=== PATIENT | male | born 1990 | race Caucasian/White ===

== ENCOUNTER 2022-11-21 13:52 | Outpatient (CLI) | payer BC, SELFPAY ==
--- NOTE | ~2022-11-21 | MR_ITS ---
EXAMINATION: MR brain/brain stem wo con DATE: 11/21/2022 14:41 INDICATION: SEIZURE, NONTRAUMATIC TECHNIQUE: Magnetic resonance imaging (MRI) of the brain and brainstem was performed without intraven ous contrast. Sequences included sagittal and axial T1-weighted SE, axial diffusion-weighted FS EPI A SSET, axial T2*-weighted GRE, axial T2-weighted FLAIR Propeller, and axial T2-weighted Propeller. Pos tcontrast axial and coronal T1-weighted SE was obtained. Apparent diffusion coefficient (ADC) maps we re created. COMPARISON: None. FINDINGS: No abnormal restricted diffusion to suggest acute ischemic infarct. No MRI evidence of hemorrhage or extra-axial collection. No suspicious foci of susceptibility to suggest prior intraparenchymal hemorr zahra. Normal white matter signal. No evidence of advanced or lobar predominant parenchymal volume los s. The basilar cisterns are patent. Flow voids are preserved. Paranasal sinuses are within normal menard its. Globes and orbital contents are within normal limits. IMPRESSION: Normal MR brain findings. Reviewed, dictated and finalized at location K. IMPRESSION: Normal MR brain findings.
== END 2022-11-21 13:53 | disposition home or self-care (01) ==
PROVIDERS: PCP Internal Medicine
DX: R56.9 Unspecified convulsions (principal)
CPT/HCPCS: 70551

== ENCOUNTER 2023-06-18 08:16 | Emergency (ER) | payer BC, OTHER, SELFPAY ==
[2023-06-18] VITALS (13 sets, daily range): BP systolic 108–127; BP diastolic 67–86; PULSE 68–92; RESP 14–16; TEMP 36.8; O2SAT 92–100
--- NOTE | ~2023-06-18 | XR_ITS ---
EXAMINATION: XR chest 1V portable DATE: 06/18/2023 10:22 INDICATION: Joint pain. TECHNIQUE: A single frontal view of the chest was obtained. COMPARISON: None. FINDINGS: There is no pneumonia, pleural effusion, or pneumothorax. The heart size is normal. IMPRESSION: 1. No acute cardiopulmonary disease. Reviewed, dictated and finalized at location A.
[2023-06-18 09:13] LABS: Influenza A QL RT-PCR Negative (Negative); Influenza B QL RT-PCR Negative (Negative); RSV RNA, RT-PCR Negative (Negative); SARS-CoV-2 RNA PCR Negative (Negative)
[2023-06-18] MEDS: SODIUM CHLORIDE 0.9% IV 1,000 ML 999 ML IV CONT (10:10)
[2023-06-18 10:17] LABS: Basophils Percent Auto 0.5 % (0.2-1.2); Eosinophils Absolute Auto 0.3 K/mm3 (0-0.3); Eosinophils Percent Auto 3.6 % (0-4.4); Hematocrit 38.7 % (42.0-52.0); Hemoglobin 13.8 g/dL (14.0-18.0); Immature Granulocyte Absolute 0.04 K/mm3 (0.00-0.031); Immature Granulocyte Percent A 0.5 % (0-0.5); Lymphocytes Absolute Auto 1.74 K/mm3 (0.9-3.2); Lymphocytes Percent Auto 23.3 % (18.3-44.2); Mean Corpuscular HGB Conc 35.7 g/dl (32-36); Mean Corpuscular Hemoglobin 30.3 pg (26-34); Mean Corpuscular Volume 85.1 fl (80-100); Mean Platelet Volume 8.9 fl (7.4-10.4); Monocytes Absolute Auto 0.6 K/mm3 (0.1-0.6); Monocytes Percent Auto 8.4 % (2.6-8.5); Neutrophils Absolute Auto 4.8 K/mm3 (1.3-6.7); Neutrophils Percent Auto 63.7 % (45.5-73.1); Platelet Count Result 214 k/mm3 (150-375); Red Blood Count 4.55 M/mm3 (4.6-6.20); Red Cell Distribution Width 11.9 % (11.5-14.5); White Blood Count 7.5 K/mm3 (4.5-10.0)
[2023-06-18 10:28] LABS: Uric Acid 4.7 mg/dL (3.5-8.5)
[2023-06-18 10:29] LABS: Rheumatoid Factor < 12.0 IU/ML (<12)
[2023-06-18 10:32] LABS: Alanine Aminotransferase 33 U/L (6-50); Albumin Level 4.3 g/dL (3.5-5.1); Alkaline Phosphatase 56 U/L (38-126); Anion Gap 5 mmol/L (8-16); Aspartate Amino Transferase 25 U/L (17-59); Bilirubin,Total 0.7 mg/dL (0.2-1.3); Blood Urea Nitrogen 14 mg/dL (9-20); CRP 0.8 mg/dL (<1.0); Calcium 9.2 mg/dL (8.4-10.2); Carbon Dioxide 31 mmol/L (22-30); Chloride 103 mmol/L (98-107); Creatine Kinase 71 U/L (55-170); Estimated CRCL calculation 124 ml/min; Estimated Glomerular Filt Rate > 60; Glucose 108 mg/dL (65-110); Sodium 139 mmol/L (137-145)
--- NOTE | 2023-06-18 10:53 | ED.GENADULT ---
HPI - General Adult General Chief complaint: Unspecified Stated complaint: stiffness to all joints, 4-5 days Time Seen by Provider: 06/18/23 08:26 History of Present Illness HPI narrative: 32-year-old male presented the emergency department for evaluation of multiple days of diffuse joint pain. Patient states it started on his right arm and has progressed to almost all his joints. Patient denies any associated fevers. Patient denies any change in medications. Patient denies any recent immunizations. Patient denies any coughs colds or fevers Related Data Allergies Allergy/AdvReac Type Severity Reaction Status Date / Time No Known Allergies Allergy Verified 06/18/23 09:00 Review of Systems Review of Systems: All systems reviewed & are unremarkable except as noted in HPI and below Exam Narrative: APPEARANCE: Well appearing, no pain, no distress, well-nourished. HEAD: normocephalic, atraumatic. EYES: PERRLA/EOMI, conjunctivae clear. NOSE: Normal no drainage EARS:TMS clear with good light reflex. THROAT: Pharynx clear, no exudate. NECK: Supple. No adenopathy, no masses. RESPIRATORY: Airway patent, respirations nonlabored. Clear to auscultation bilaterally, no rales, rhonchi, wheezing. CARDIOVASCULAR: Regular rate and rhythm without murmurs rubs or gallops. ABDOMINAL: Soft, nontender, nondistended, normal bowel sounds MUSCULOSKELETAL: Moves all extremities. Strength/ROM intact, No edema, No calf tenderness. NEURO: Alert. Cranial nerves II through XII intact. Grossly intact SKIN: Warm, dry. Normal Color Course Course Emergency Course: 32-year-old male present emergency department for evaluation of joint pain that started in his right hip and his right elbow and then spread to all other joints. Patient states he does take ibuprofen in the morning and the pain improves throughout the day but then returns in the morning. Patient was afebrile with no leukocytosis and a stable hemoglobin. Patient had no significant abnormalities on his CMP. Patient did have an elevated ESR at 151 patient's uric acid was not elevated patient's CRP was not elevated. Patient's ADRIANNA and Lyme disease are pending. Patient's rheumatoid factor was negative. Patient and family were updated on the results of the work-up and patient was encouraged of close follow-up with his primary care physician. Patient was educated on reasons to return to the emergency department. All other concerns were addressed Vital Signs Vital signs: Vital Signs Temperature 98.3 F 06/18/23 08:19 Pulse Rate 80 06/18/23 08:19 Respiratory Rate 16 06/18/23 08:19 Blood Pressure 127/77 06/18/23 08:19 Pulse Oximetry 99 06/18/23 08:19 Oxygen Delivery Room Air 06/18/23 08:19 Temperature 98.3 F 06/18/23 08:19 Pulse Rate 68 06/18/23 13:23 Respiratory Rate 15 06/18/23 13:23 Blood Pressure 109/70 06/18/23 13:23 Pulse Oximetry 100 06/18/23 13:23 Oxygen Delivery Room Air 06/18/23 08:19 Medical Decision Making Differential Diagnosis Differential Diagnosis: Lyme disease, COVID, rheumatoid arthritis, lupus, viral syndrome Vital Signs Vital Signs: Vital Signs Temperature 98.3 F 06/18/23 08:19 Pulse Rate 80 06/18/23 08:19 Respiratory Rate 16 06/18/23 08:19 Blood Pressure 127/77 06/18/23 08:19 Pulse Oximetry 99 06/18/23 08:19 Oxygen Delivery Room Air 06/18/23 08:19 Temperature 98.3 F 06/18/23 08:19 Pulse Rate 68 06/18/23 13:23 Respiratory Rate 15 06/18/23 13:23 Blood Pressure 109/70 06/18/23 13:23 Pulse Oximetry 100 06/18/23 13:23 Oxygen Delivery Room Air 06/18/23 08:19 Lab Data Lab results reviewed: Yes I reviewed the patient's lab results. 06/18/23 10:10 06/18/23 10:10 Labs: Lab Results 06/18/23 06/18/23 06/18/23 Range/Units 08:33 10:10 11:36 WBC 7.5 (4.5-10.0) K/mm3 RBC 4.55 L (4.6-6.20) M/mm3 Hgb 13.8 L (14.0-18.0) g/dL Hct
--- NOTE | 2023-06-18 10:59 | PC.NURSE ---
Patient report given to KAYKAY Mccullough. All questions answered and care of patient transferred.
[2023-06-18 11:02] LABS: Erythrocyte Sedimentation Rate 151 mm/hr (0-20)
[2023-06-18 12:06] LABS: Appearance Urine Clear (Clear); Bilirubin Urine Negative (Negative); Blood Urine Negative (Negative); Color Urine Yellow (Yellow); Glucose Urine UA Negative (Negative); Ketones Urine Negative (Negative); Leukocyte Esterase Ur Negative LEU/UL (Negative); Nitrate Urine Negative (Negative); Protein Urine Negative (Negative); Specific Grav Ur 1.032 (1.001-1.035); pH Urine 5.5 (5.0-9.0)
[2023-06-18 12:28] LABS: Add Urine Microscopic? NO
[2023-06-18] MEDS: KETOROLAC 15 MG/ML VIAL (*BKC) IV PUSH (12:58)
[2023-06-23 07:55] LABS: Lyme Disease Ab (IgM), Blot Negative (Negative); Lyme Disease Ab(IgG), Blot Negative (Negative)
== END 2023-06-18 13:24 | disposition home or self-care (01) ==
PROVIDERS: Emergency Provider Emergency Medicine; PCP Internal Medicine
DX: M25.521 Pain in right elbow (principal); M25.551 Pain in right hip; M25.59 Pain in other specified joint; Z20.822 Contact with and (suspected) exposure to COVID-19
CPT/HCPCS: 36415; 71045; 80053; 81003; 82550; 84550; 85025; 85652; 86140; 86430; 86617; 87637; 96361; 96374; 99284; J1885; J7030

== ENCOUNTER 2025-01-15 08:22 | Outpatient (CLI) | payer BC, SELFPAY ==
--- OUTSIDE RECORDS SUMMARY | 2025-01-15 08:29 | XMS_ITS | Referral Summary ---
Author Organization [id number] Address [address] [place] [id number] Care Team Providers Care Work Over Rig Operator Name Role Phone Shazia Mead NP Primary Care Provider [phone] Allergies Active Allergy Reactions Criticality Noted Date Comments Atomoxetine Vomiting Low 10/12/2019 vomiting Methylphenidate Mental status changes Low 0 worsening sx of depression Medications hydrOXYzine (ATARAX) 50 mg tabletIndications: anxiety Take 1 tablet (50 mg total) by mouth every 8 (eight) hours as needed for anxiety 90 tablet 1 10/19/19 20 Active escitalopram (LEXAPRO) 20 mg tabletIndications: Severe anxiety Take 1 tablet by mouth once daily 30 tablet 1 07/09/20 21 Active ondansetron ODT (ZOFRAN-ODT) 4 mg disintegrating tablet Take 1 tablet (4 mg total) by mouth every 8 (eight) hours as needed for nausea or vomiting 20 tablet 04/21/20 22 Active Additional Information Patient not taking.Reported on 12/07/2022 levETIRAcetam (KEPPRA) 500 mg tablet Take 1 tablet (500 mg total) by mouth 2 (two) times a day 180 tablet 3 03/22/20 24 025 Active Active Problems Problem Noted Date Diagnosed Date Altered mental status 02/29/2024 H/O convulsions 04/30/2022 Overview (11/03/2022): 04/30/2022 - EEG evident of some sz like activity, keppra therapy Dr Schroeder neuro is managing Assessment & Plan (11/03/2022 12:05 PM ASBESTOS PIPE SUPERVISOR): Cont under Dr Schroeder neurologist Remain sober off etoh Has a repeat eeg coming up No convulsions in over 6 months 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 Assessment & Plan (04/30/2022 5:52 PM CDT): Likely from dehydration and aggravated by etoh and vomiting eeg recommended to rule out seizure disorder. Explained to the patient that sometimes alcohol intake can do so the seizure threshold tendency. An EEG should be useful information. Healthy lifestyle Good hydration Patient discouraged from drinking alcohol. Offered the patient AA declines at this time feels he does not have a drinking problem. He knows that he cannot drink a responsibly and patient discouraged from drinking from here on. Letter for work stating that he is cleared to return to full duty functions without any restrictions effective immediately. Annual physical exam 09/09/2020 Assessment & Plan (09/10/2020 3:48 PM ASBESTOS PIPE SUPERVISOR): Wear sunscreen with SPF over 50 while outdoors. Wear sun protective head wear and clothing if planning to stay outdoors exposed to the direct sunlight for extended hours. Wear seatbelts while in a vehicle. Do not TEXT and DRIVE Do not DRINK and DRIVE. Drink responsibly Follow a heart healthy diet and lifestyle. Consume 5-7 servings of fruits and vegetables a day.. Such as the Mediterranean Diet. Maintain/attain normal body weight. Exercise regularly, minimum 20 mins 3 days a week to reduce cardiovascular healthy. Maintain good sleep schedule and sleep habits I recommend that all patients follow a diet that is high in fruits and vegetables and low in processed foods such as sugar and foods that are made with white flour. I recommend using beneficial fats such as olive oil, nuts, seeds and berries and avoiding saturated animal fats. Please stay physically active to the extent that you are physically able to. Test results: if you have not received communication about test results within 7 days of the test being performed, please contact the office. I strongly encourage myChart sign ups. It can facilitate communication flow. Please contact the office for instructions on signing up. BMI 27.0-27.9,adult 10/19/2019 Assessment & Plan (09/10/2020 3:49 PM ASBESTOS PIPE SUPERVISOR): Work on wt loss Exercise regularly add cardio to work out Cont to weight lift 5 d a week Assessment & Plan (11/14/2019 11:59 AM CDT): BMI Follow-up includes: nutrition counseling. ADHD (attention deficit hyperactivity disorder) 07/14/2016 Overview (11/03/2022): Has tried in the past, concerta (took for longestFlattened his emotions), strattera (heart palpitations, nausea), ritalin patch (rash from patch), adderal (gi sick) Assessment & Plan (11/03/2022 11:59 AM ASBESTOS PIPE SUPERVISOR): Managing well las an adult Use coping mechanisms Learning to deal with ADD Has tried in the past, concerta (took for longest. Flattened his emotions), strattera (heart palpitations, nausea), ritalin patch (rash from patch), adderal (gi sick) Still taking classes at work LUIS (generalized anxiety disorder) 07/14/2016 Overview (11/14/2019): Lexapro and prn atarax Assessment & Plan (11/03/2022 11:49 AM ASBESTOS PIPE SUPERVISOR): Cont on lexapro, takes it for a couple of months at a time Does not like the side effects Patient is able to identify when to restart lexapro Has not needed atarax for about 2 yrs Keep on board and use prn only Assessment & Plan (09/10/2020 3:48 PM ASBESTOS PIPE SUPERVISOR): Stable on lexapro therapy Episode of recurrent major depressive disorder 1 09/13/2015 Assessment & Plan (11/03/2022 11:51 AM ASBESTOS PIPE SUPERVISOR): lexapro cont prn but when take it make sure at least for 2-3 mos at a time Exercise for mental stability Walk regularlly or exercise regularly if able to Assessment & Plan (04/30/2022 5:50 PM CDT): Okay to continue Lexapro. Does not reduce seizure threshold. Assessment & Plan (09/10/2020 3:48 PM ASBESTOS PIPE SUPERVISOR): Stable on lexapro therapy daily Doing well Agrees to continue taking Ok to decrease dose to 10mg in the summer more active mos, increase to 20mg in the winter Assessment & Plan (11/14/2019 11:59 AM CDT): Continue lexapro as above Resolved Problems Problem Noted Date Diagnosed Date Resolved Date Severe anxiety 10/19/2019 11/14/2019 Assessment & Plan (11/14/2019 11:58 AM CDT): Significantly improved now on Lexapro 20 mg and Atarax as needed. Has only had takes Atarax 4-5 times in the last month. States he is having minimal side effects to the Lexapro. At the start he had some decreased libido but he feels this is returning. Notify office if libido becomes a problem and we can try Wellbutrin, however this does not work as well for anxiety. Otherwise continue current plan of care. Assessment & Plan (10/19/2019 2:47 PM ASBESTOS PIPE SUPERVISOR): Counseled patient about the dangers of taking high-dose SSRI without titrating it, he stated understanding. As he has been on 10-20 mg of Lexapro for over week, will send new prescription for 20 mg of Lexapro. I also educated patient on how Lexapro can take 4-6 weeks to help reduce anxiety. Due to this and his extreme anxiety, we'll start him on hydroxyzine 50 mg p.o. 3 times daily as needed. Medication causes to was fatigued then reduce to [address] until you know how medication affects you. Ff up in 4 weeks for next visit and anxiety check Immunizations Immunization Administration Dates Next Due Flucelvax Influenza Quad 07/05/2017 Influenza, Quadrivalent, Spl it, Preservative Free, Intramuscular 09/16/2017 PPD TEST 04/06/2017 Pfizer SARS-CoV-2 Monovalent Vaccination (12+ Yrs) PURPLE 08/23/2020 Tdap 10/17/2017 Varicella 10/17/2017,10/17/2017 Social History Tobacco Use Types Packs/Day Years Used Date Smoking Tobacco: Former Smokeless Tobacco: Never Tobacco Cessation:Counseling Given: No Alcohol Use Standard Drinks/Week Comments Yes 0 (1 standard drink = 0.6 oz pur e alcohol) AUDIT-C Answer Date Recorded Frequency of Alcohol Consumption 2-4 times a wed10/19/2019 Average Number of Drinks Not on file 020 Frequency of Binge Drinking Not on file 10/07 PHQ-2 Answer Date Recorded PHQ-2 Total Score (If total score is 3 or more points, staff should administer the PHQ-9) 0 11/03/2022 Personal Safety Answer Date Recorded Getting School Help Needed Not on file 10/10 Sex and Gender Information Value Date Recorded Sex Assigned at Not on file Legal Sex Male 5:58 PM ASBESTOS PIPE SUPERVISOR Gender Identity Not on file Sexual Orientation Not on file Occupation Industry Job Start Date Job End Date [employer] Not on file Not on file Not on file Last Filed Vital Signs Vital Sign Reading Time Taken Comments Blood Pressure 119/78 02/16/2024 11:33 AM CDT Pulse 81 12/07/2022 3:21 PM CDT Temperature 36.5 C (97.7 F) 12/07/2022 3:21 PM CDT Respiratory Rate 18 12/07/2022 3:21 PM CDT Oxygen Saturation 98% 12/07/2022 3:21 PM CDT Inhaled Oxygen Concentration - - Weight 86.2 kg (190 lb) 02/16/2024 11:33 AM CDT Height 180.3 cm (5' 11 ) 02/16/2024 11:33 AM CDT Body Mass Index 26.5 02/16/2024 11:33 AM CDT Plan of Treatment Not on file Insurance [facility] BLUE ACCESS ME BLUE ACCESS ME Care Teams Work Over Rig Operator Relationship Specialty Start Date End Date Shazia Mead NP [address] [place], [place] [id number] PCP - General Family Medicine 02/17/24
--- OUTSIDE RECORDS SUMMARY | 2025-01-15 08:30 | XMS_ITS | Clinical Summary ---
Author Organization [id number] Address [address] [place] [id number] Care Team Providers Care Format Proofreader Name Role Phone Shazia Mead NP Primary Care Provider [phone] Allergies Active Allergy Reactions Criticality Noted Date [...] managing Assessment & Plan (11/03/2022 12:05 PM VETERINARY INSPECTOR): Cont under Dr Schroeder neurologist Remain sober [...] 09/09/2020 Assessment & Plan (09/10/2020 3:48 PM VETERINARY INSPECTOR): Wear sunscreen with SPF over 50 while [...] 10/19/2019 Assessment & Plan (09/10/2020 3:49 PM VETERINARY INSPECTOR): Work on wt loss Exercise regularly add [...] sick) Assessment & Plan (11/03/2022 11:59 AM VETERINARY INSPECTOR): Managing well las an adult Use coping mechanisms Learning to deal with ADD Has tried in the past, concerta (took for longest. Flattened his emotions), strattera (heart palpitations, nausea), ritalin patch (rash from patch), adderal (gi sick) Still taking classes at work LUIS (generalized anxiety disorder) 07/14/2016 Overview (11/14/2019): Lexapro and prn atarax Assessment & Plan (11/03/2022 11:49 AM VETERINARY INSPECTOR): Cont on lexapro, takes it for a couple of months at a time Does not like the side effects Patient is able to identify when to restart lexapro Has not needed atarax for about 2 yrs Keep on board and use prn only Assessment & Plan (09/10/2020 3:48 PM VETERINARY INSPECTOR): Stable on lexapro therapy Episode of recurrent major depressive disorder 1 09/13/2015 Assessment & Plan (11/03/2022 11:51 AM VETERINARY INSPECTOR): lexapro cont prn but when take it make sure at least for 2-3 mos at a time Exercise for mental stability Walk regularlly or exercise regularly if able to Assessment & Plan (04/30/2022 5:50 PM CDT): Okay to continue Lexapro. Does not reduce seizure threshold. Assessment & Plan (09/10/2020 3:48 PM VETERINARY INSPECTOR): Stable on lexapro therapy daily Doing well [...] care. Assessment & Plan (10/19/2019 2:47 PM VETERINARY INSPECTOR): Counseled patient about the dangers of taking [...] Yrs) PURPLE 08/23/2020 Tdap 10/17/2017 Varicella 10/17/2017,10/17/2017 Surgical History Surgery Date Site/Laterality Comments LEG SURGERY Medical History Medical History Date Comments Anxiety Family History Medical History Relation Name Comments Hyperlipidemia Father Skin cancer Father Skin cancer Mother Relation Name Status Comments Father Alive Mother Alive Social History Tobacco Use Types Packs/Day Years [...] on file Legal Sex Male 5:58 PM VETERINARY INSPECTOR Gender Identity Not on file Sexual Orientation Not on file 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 file Not on file Not on file Obstetrics History Last Filed Vital Signs Vital Sign Reading [...] 02/16/2024 11:33 AM CDT Plan of Treatment Health Maintenance Due Date Last Done Comments Hepatitis C Screening 1991 Hepatitis B Screening 2009 Regular Well Visit/Exam 18-64 09/10/2021 09/10/2020 Depression Screening 11/03/2023 11/03/2022, 04/30/2022, 09/10/2020, Additional history exists Covid-19 Vaccine ( season) 2024 09/13/2020, 08/23/2020 Influenza Vaccine (Season Ended) 2025 09/16/2017, 07/05/2017 DTaP/Tdap/Td Vaccine (2 - Td or Tdap) 10/17/2027 10/17/2017 Varicella Vaccines Discontinued 10/17/2017, 10/17/2017 HPV Vaccines Aged Out No longer eligi ble based on patient's age to complete this topic Pneumococcal vaccine <65 Aged Out No longer eligible based on patient's age to complete this topic [place] [facility] Care Teams Format Proofreader Relationship Specialty Start Date End Date Shazia Mead NP [address] [place], [place] [id number] PCP - General Family Medicine 02/17/24
[2025-01-15 08:54] LABS: Hemoglobin 14.7 g/dL (14.0-18.0); Mean Corpuscular HGB Conc 34.2 g/dl (32-36); Mean Corpuscular Hemoglobin 29.5 pg (26-34); Mean Corpuscular Volume 86.3 fl (80-100); Platelet Count Result 247 k/mm3 (150-375); Red Blood Count 4.98 M/mm3 (4.6-6.20); Red Cell Distribution Width 12.2 % (11.5-14.5)
[2025-01-15 09:07] LABS: Alanine Aminotransferase 37 U/L (6-50); Albumin Level 4.7 g/dL (3.5-5.1); Alkaline Phosphatase 63 U/L (38-126); Anion Gap 9 mmol/L (4-12); Aspartate Amino Transferase 33 U/L (17-59); Bilirubin,Total 1.2 mg/dL (0.2-1.3); Blood Urea Nitrogen 16 mg/dL (9-20); Calcium 9.6 mg/dL (8.4-10.2); Carbon Dioxide 28 mmol/L (22-30); Chloride 104 mmol/L (98-107); Cholesterol 161 mg/dL (0-200); Estimated Glomerular Filt Rate > 60; Glucose 102 mg/dL (65-110); HDL Direct 32 mg/dL; Potassium 4.4 mmol/L (3.4-5.0); Sodium 141 mmol/L (137-145); Triglycerides 147 mg/dL (<150)
[2025-01-15 09:10] LABS: Iron 109 ug/dL (49-181)
[2025-01-15 09:21] LABS: LDL Cholesterol Direct 83 mg/dL
[2025-01-15 09:24] LABS: Percent Iron Saturation 35 % (20-50)
[2025-01-15 09:54] LABS: Thyroid Stimulating Hormone Reflex 0.694 uIU/mL (0.465-4.68)
[2025-01-15 10:14] LABS: Folic Acid 11.3 ng/mL (2.76->20)
[2025-01-15 10:37] LABS: Vitamin D 25 Hydroxy 72.2 ng/mL
[2025-01-18 10:20] LABS: Vitamin B6 50.3 ng/mL (2.1-21.7)
[2025-01-18 20:03] LABS: Vitamin B1 10 nmol/L (8-30)
[2025-01-19 15:03] LABS: Vitamin B2 8.1 nmol/L (6.2-39.0)
[2025-01-19 19:13] LABS: Testosterone Total 631 ng/dL (250-1100)
== END 2025-01-15 08:23 | disposition home or self-care (01) ==
LOC: ANHLAB 08:24
PROVIDERS: PCP Nurse Practitioner Family; Visit Provider Nurse Practitioner Family
DX: R68.82 Decreased libido (principal); R53.83 Other fatigue; Z68.27 Body mass index [BMI] 27.0-27.9, adult; Z13.29 Encounter for screening for other suspected endocrine disorder; Z00.00 Encounter for general adult medical examination without abnormal findings; Z13.1 Encounter for screening for diabetes mellitus; E53.9 Vitamin B deficiency, unspecified; E55.9 Vitamin D deficiency, unspecified; G25.81 Restless legs syndrome; E61.1 Iron deficiency; R79.89 Other specified abnormal findings of blood chemistry; Z13.220 Encounter for screening for lipoid disorders
CPT/HCPCS: 36415; 80053; 80061; 82306; 82607; 82728; 82746; 83036; 83540; 83550; 84207; 84252; 84403; 84425; 84443; 85027